=== PATIENT | male | born 1970 | race Caucasian/White ===

== ENCOUNTER 2022-01-17 14:33 | Inpatient (IN) | payer OTHER ==
[~2022-01-17] VITALS: Ht 190.5 cm; Wt 148.3 kg
[2022-01-17 15:10] LABS: HEMOGLOBIN 13.5 gm/dl (14.0-17.5); RED BLOOD COUNT 4.46 M/UL (4.20-5.50); WHITE BLOOD COUNT 14.1 K/UL (4.5-11.0)
[2022-01-17 15:56] LABS: BUN/CREATININE RATIO 21 (0-10)
[2022-01-18 05:17] LABS: HEMOGLOBIN 11.6 gm/dl (14.0-17.5); RED BLOOD COUNT 3.94 M/UL (4.20-5.50); WHITE BLOOD COUNT 10.7 K/UL (4.5-11.0)
[2022-01-18 05:41] LABS: BUN/CREATININE RATIO 25 (0-10)
[2022-01-19 05:04] LABS: BUN/CREATININE RATIO 25 (0-10)
[2022-01-19] MEDS ORDERED: BUPRENORPHINE-1 EACH SL (09:42)
[2022-01-19] MEDS ORDERED: GABAPENTIN600 MG PO (09:42)
[2022-01-19] MEDS ORDERED: LORATADINE10 MG PO (09:42)
[2022-01-19] MEDS ORDERED: FLONASE ALLER15.8 ML (09:42)
[2022-01-19] MEDS ORDERED: LISINOPRIL-HCT1 EAC1 PO (09:43)
[2022-01-19] MEDS ORDERED: SIMVASTATIN10 MG PO (09:43)
[2022-01-19] MEDS ORDERED: NALOXONE HCL4 MG (09:43)
[2022-01-19 10:22] LABS: HEMOGLOBIN 13.2 gm/dl (14.0-17.5); RED BLOOD COUNT 4.2 M/UL (4.20-5.50)
[2022-01-19 10:23] LABS: WHITE BLOOD COUNT 20.4 K/UL (4.5-11.0)
[2022-01-20 08:25] LABS: HEMOGLOBIN 12.5 gm/dl (14.0-17.5); RED BLOOD COUNT 4.11 M/UL (4.20-5.50)
[2022-01-20 08:26] LABS: WHITE BLOOD COUNT 14.4 K/UL (4.5-11.0)
== END 2022-01-20 16:07 | disposition home or self-care (01) | DRG 917 ==
LOC: ER1 14:33 → EDBD 18:42 → CDU 18:42 → PROG CARE 18:42
PROVIDERS: Emergency Medicine; Internal Medicine; Internal Medicine Infectious Disease; Physician Assistant; ADMIT Internal Medicine
PROC: 3E0333Z Introduction of Anti-inflammatory into Peripheral Vein, Percutaneous Approach (ICD-10-PCS; principal; 2022-01-17)
PROC: 009U3ZX Drainage of Spinal Canal, Percutaneous Approach, Diagnostic (ICD-10-PCS; 2022-01-18)
PROC: B01B1ZZ Fluoroscopy of Spinal Cord using Low Osmolar Contrast (ICD-10-PCS; 2022-01-18)
PROC: B24BZZZ Ultrasonography of Heart with Aorta (ICD-10-PCS; 2022-01-19)
DX: T43.621A Poisoning by amphetamines, accidental (unintentional), initial encounter (principal); G92.8 Other toxic encephalopathy; Z20.822 Contact with and (suspected) exposure to COVID-19; E87.2 Acidosis; Z68.41 Body mass index [BMI] 40.0-44.9, adult; E88.09 Other disorders of plasma-protein metabolism, not elsewhere classified; D64.9 Anemia, unspecified; G89.4 Chronic pain syndrome; F17.210 Nicotine dependence, cigarettes, uncomplicated; F19.10 Other psychoactive substance abuse, uncomplicated; E66.9 Obesity, unspecified
CPT/HCPCS: ECHO; 36415; 51702; 70450; 70551; 71045; 80053; 80202; 80307; 81001; 82533; 82550; 82553; 82962; 83036; 83605; 83735; 83880; 84100; 84484; 85025; 85027; 85610; 85730; 86140; 87040; 87086; 93306; 96374; 96375; 97110-GP-CQ; 97116; 97116-GP-CQ; 97161; 99285; G0480; J0133; J0692; J0696; J1100; J1885; J2060; J3370; J3411; J3475; J7030; J7070